=== PATIENT | female | born 1940 | race Caucasian/White ===

== ENCOUNTER 2016-12-16 13:07 | Emergency (ER) | payer MEDICARE ==
[~2016-12-16] VITALS: Ht 160 cm; Wt 92.3 kg
[~2016-12-16 13:07] MED LIST: ALBU18HF INH; ALBU5SOL4 IN; CLOP75TA28 PO; FLUT12AE8 IH; FURO40TA4 PO; GABA-502 PO; HYDR-4003 PO; HYG25 PO; METO25TA6 PO; OMEP-113 PO; SALM50DI IH; ZYL100 PO
[2016-12-16 13:12] VITALS: BP 104/51; PULSE 71; RESP 12; O2SAT 98
--- NOTE | 2016-12-16 13:24 | ED.REPORT ---
HPI-Stroke / CVA Dec 16, 2016 ED Provider: Raul Odonnell MD Patient is a 76 year old female with a hx of peripheral vascular disease, DM, Stage 4 kidney disease, and COPD who presents to the ED complaining of a possible stroke. Associated symptoms include R facial droop and facial numbness onset 3 days ago. She noticed her facial droop when she has been drinking things and they have been dribbling out of her mouth. She denies slurred speech , other vision changes, extremity weakness, or any other symptoms. Nursing Notes Stated Complaint: POSSIBLE STROKE Chief Complaint: Neuro Symptoms/ Deficits Nursing Notes Reviewed: Yes Allergies: Coded Allergies: metronidazole (Verified Adverse Reaction, Mild, felt weird, 12/05/14) Scheduled Albuterol Sulfate (Albuterol 5% Inh Soln) 5 Mg/1 Ml Solution 2.5 MG IN QID ( Reported) Mix in nebulizer reservoir with sodium chloride nebulizer solution. Allopurinol (Allopurinol) 100 Mg Tablet 100 MG PO BID (Reported) Chlorthalidone (Chlorthalidone) 25 Mg Tablet 50 MG PO DAILY (Reported) Clopidogrel (Clopidogrel) 75 Mg Tablet 75 MG PO DAILY (Reported) Fluticasone Propionate (Flovent HFA 110 mcg) 12 Gm Aer.w.adap 1 PUFF IH BID ( Reported) Furosemide (Furosemide) 40 Mg Tablet 40 MG PO DAILY (Reported) Gabapentin (Gabapentin) 300 Mg Capsule 300 MG PO HS (Reported) Metoprolol Tartrate (Metoprolol Tartrate) 25 Mg Tablet 25 MG PO BID (Reported) Omeprazole Magnesium (Omeprazole) 20 Mg Capsule.dr 20 MG PO DAILY (Reported) Salmeterol Xinafoate (Serevent Diskus) 50 Mcg/Puff Inhaler 1 PUFF IH BID ( Reported) Scheduled PRN Albuterol Sulfate (Ventolin HFA Inhaler) 200 Puff/18 Gm Inhaler 2 PUFF INH Q4 PRN PRN For Wheezing (Reported) Gabapentin (Gabapentin) 300 Mg Capsule 300 MG PO QID PRN PRN For Pain (Reported ) Hydrocodone-Acetaminophen 5-325 mg (Hydrocodone-Acetaminophen 5-325 mg) 1 Each Tablet 1 EACH PO Q4-6H PRN PRN For Pain (Reported) General Time Seen by Provider: 13:24 Chief Complaint Other (Possible stroke ) Right-sided Hx Obtained From: Patient, Spouse Arrived By: Walk-in Time last known well 12/14/16 - 3 days ago Sudden in Onset?: Yes Symptom Duration: Since onset Progression Since Onset: Unchanged Severity: Current: No pain currently Severity: Maximum: No pain Similar Sx Previous: No Risk Factors )( TPA Administration/Criteria Stroke Thrombolytic Therapy : TPA Considered: Yes Neurologist Contacted: No TPA Administered Intravenously: No, not indicated Inclusion Criteria: N/A Exclusion Criteria: N/A NIH Stroke Scale Level of Consciousness: Alert and responsive (0) Ask Month & Age: Both questions right (0) 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 (0) Horizontal EO Movements: None (0) Visual Childers: No visual loss (0) Facial Palsy: Partial paral, lower (2) Right Arm Motor Drift (10s): No drift 10 sec (0) Left Arm Motor Drift (10s): No drift 10 sec (0) Right Leg Motor Drift (5s): No drift 5 sec (0) Left Leg Motor Drift (5s): No drift 5 sec (0) Limb Ataxia FNF/Heel-Martinez: No ataxia (0) Sensation (Arms/Legs/Face): No sensory loss (0) Language Aphasia: No aphasia, normal (0) Dysarthria: No dysarthria, normal (0) Extinction/Inattention: No exctinct/inattent (0) NIHSS Score: 2 Time NIHSS Performed: 13:28 Date NIHSS Performed: Dec 16, 2016 )( CVA Risk Stratification Diabetes mellitusNo Anticoag/bleed diathesis, No Atrial fibrillation, No Hyperlipidemia, No Hypertension, No Smoking Risk factors reviewed Past Medical History Past Medical History 1. Peripheral vascular disease, status post PCI and stenting of the totally occluded left common iliac artery. 2. Diabetes mellitus. 3. Stage 4 kidney disease 4. COPD 5. Fibromyalgia 6. Diverticulitis Denies: Cancer, Stroke Denies: Thyroid disease Past Surgical History Cardiac catheterization Reports: Cholecystectomy, Hysterectomy Family History non-contributory Smoking History Former Smoker Social History Alcohol Use: Denies alcohol use Drug Use: Denies drug use Ambulatory Status Independent Review of Systems Review of Systems Note: +R facial droop Neurologic: Reports: Numbness, Denies: Slurred speech, Vision change, Weakness Complete sys rev & neg: except as marked. Physical Exam Initial Vital Signs Vital Signs (First) Date Time Temp Pulse Resp B/P Pulse Ox O2 Delivery O2 Flow Rate FiO2 12/16/16 13:12 36.6 71 12 104/51 98 Room Air Initial VS: Reviewed Abdomen / GI: Soft, Non-tender Skin: Warm, Dry Psychiatric: Mood/affect normal, Behavior normal, Normal thought content General/Constitutional: Awake, Alert, No acute distress Head / Eyes: Atraumatic, PERRL, EOMI Neck: Supple, Full range of motion Respiratory / Chest: Breath sounds NL, Breath sounds = bilat, No respiratory distress Cardiovascular: Heart rate NL, Regular rhythm, Heart sounds NL Neurologic: Oriented X3, Speech NL Incomplete blinking of R eye R facial droop No speech impairment no extremity impairment stroke scale score of 2 Interpretation & Diagnostics Lab Results Interpretation Lab Results Interpretation: BRAIN MRI: IMPRESSION: 1. No acute infarcts. 2. Mild chronic white matter small vessel ischemic changes and cerebral volume loss. Dictated by: Abhi Balbuena M.D. on 12/16/2016 at 14:23 Approved by: Abhi Balbuena M.D. on 12/16/2016 at 14:37 Patient Discharge & Departure Impression: Primary Impression: Facial nerve palsy Disposition: Home Patient Instructions: Palomo Palsy (ED) Additional Instructions: You do not have a stroke. 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 This should resolve on its own. The likelihood of resolution is increased if he will take the antiviral medication known is acyclovir and steroid medication known as prednisone. Follow-up with your doctor next week for reassessment. Use lubricating eyedrops such as "refresh". At nighttime I recommend a product known as: "Celluvisc" all this is to prevent corneal irritation. Referrals: Naseem Harris MD (PCP) Scribe Attestation Portions of this note were transcribed by Feliciano Parks. I, Dr. Odonnell personally performed the history, physical exam and medical decision-making; I reviewed and confirmed the accuracy of the information in the transcribed note. Signed by: Feliciano Parks 12/16/2016, 1443 copies to: Naseem Harris MD, Kirk H MD Dec 16, 2016 13:24 FELICIANO PARKS Dec 16, 2016 13:33
[2016-12-16 14:39] VITALS: BP 144/62; PULSE 73; RESP 11; O2SAT 98
--- NOTE | 2016-12-16 14:39 | DRSVH ---
PROCEDURE: MRI BRAIN WITHOUT CONTRAST ([id number]) INDICATIONS: Right facial weakness. TECHNIQUE: Non-contrast axial T1 spin echo, axial T2 fast spin echo, sagittal and axial FLAIR, coronal T2 fast s pin echo, axial gradient echo, axial diffusion and ADC through the brain. COMPARISON: None. FINDINGS: Image quality: Excellent. CSF spaces: There is mild cerebral volume loss with prominence of the ventricles and sulci. Basal ci sterns are patent. No extra-axial fluid collections. Brain: Diffusion-weighted images demonstrate no acute infarcts. No intracranial hemorrhage, mass, or mass effect. There are scattered subcortical, periventricular and deep white matter foci of T2 hype rintensity consistent with mild chronic small vessel ischemic changes. Brainstem appears normal. Nor mal intravascular flow voids are present. Skull and face: Calvarial bone marrow is normal in signal. Orbits are normal. Sinuses: There is mild mucosal thickening in the ethmoid and maxillary sinuses. Mastoid air cells ar e clear. IMPRESSION: 1. No acute infarcts. 2. Mild chronic white matter small vessel ischemic changes and cerebral volume loss. Dictated by: Abhi Balbuena M.D. on 12/16/2016 at 14:23 Approved by: Abhi Balbuena M.D. on 12/16/2016 at 14:37
[2016-12-16] MEDS ORDERED: ZOV800 PO (14:59)
[2016-12-16] MEDS ORDERED: PRE20 PO (14:59)
[2016-12-16 15:09] VITALS: BP 131/45; PULSE 73; RESP 19; O2SAT 95
== END 2016-12-16 15:12 | disposition home or self-care (01) ==
LOC: SED 13:07
DX: G51.0 Bell's palsy (principal); E11.22 Type 2 diabetes mellitus with diabetic chronic kidney disease; N18.4 Chronic kidney disease, stage 4 (severe); J44.9 Chronic obstructive pulmonary disease, unspecified; M79.7 Fibromyalgia; Z95.5 Presence of coronary angioplasty implant and graft; Z87.891 Personal history of nicotine dependence; Z88.1 Allergy status to other antibiotic agents